=== PATIENT | male | born 1980 | race Two or more races ===

== ENCOUNTER → 2018-05-13 | Outpatient (CLI) | payer BC ==
--- NOTE | 2018-05-13 14:41 | RADIOLOGY REPORT (SQ) ---
EXAM DESCRIPTION: U/S SCROTUM W/O DOPPLER; U/S NON-OB PELVIS W/O DOP COMPLETED DATE/TIME: 05/13/2018 2:20 pm REASON FOR STUDY: R10.31 RIGHT LOWER QUADRANT PAIN;RIGHT INGUINAL HERNIA R10.31 RIGHT LOWER QUADRAN T PAIN COMPARISON: None. TECHNIQUE: Static and realtime almonte scale imaging of the scrotum and testes. Selected color Doppler and spectral images recorded to document blood flow. Patient is also having right inguinal pain. Ultrasound of the right inguinal canal was performed wit hout and with Valsalva LIMITATIONS: None. FINDINGS: RIGHT: TESTICLE: Normal size, 4 x 3.3 x 2.4 cm in size. Normal echotexture. Normal blood flow. No mass. EPIDIDYMIS: Normal. HYDROCELE OR VARICOCELE: There is a small right hydrocele which continues up into the right inguinal canal around the spermatic cord. No varicocele HERNIA OR EXTRA-TESTICULAR MASS: Small amount of fluid tracking from the right hemiscrotum into the r ight inguinal canal around the spermatic cord. No bowel loops in the right inguinal canal. OTHER: No other significant finding. LEFT: TESTICLE: Normal size, 4.4 by 3.2 x 2.6 cm in size. Normal echotexture. Normal blood flow. No mass. EPIDIDYMIS: Normal. HYDROCELE OR VARICOCELE: Small left hydrocele. No varicocele. HERNIA OR EXTRA-TESTICULAR MASS: No. OTHER: No other significant finding. IMPRESSION: No ultrasound evidence for testicular torsion Bilateral small hydroceles Fluid tracks from the right hemiscrotum into the right inguinal canal around the spermatic cord witho ut herniated bowel loops in the right inguinal canal. TECHNICAL DOCUMENTATION: JOB ID: [id number]- All Rights Reserved Reading location - IP/workstation name: [email or web address]
--- NOTE | 2018-05-13 14:41 | RADIOLOGY REPORT (SQ) ---
EXAM DESCRIPTION: U/S SCROTUM W/O DOPPLER; U/S NON-OB PELVIS W/O DOP COMPLETED DATE/TIME: 05/13/2018 2:20 pm REASON FOR STUDY: R10.31 RIGHT LOWER QUADRANT PAIN;RIGHT INGUINAL HERNIA R10.31 RIGHT LOWER QUADRAN T PAIN COMPARISON: None. TECHNIQUE: Static and realtime almonte scale imaging of the scrotum and testes. Selected color Doppler and spectral images recorded to document blood flow. Patient is also having right inguinal pain. Ultrasound of the right inguinal canal was performed wit hout and with Valsalva LIMITATIONS: None. FINDINGS: RIGHT: TESTICLE: Normal size, 4 x 3.3 x 2.4 cm in size. Normal echotexture. Normal blood flow. No mass. EPIDIDYMIS: Normal. HYDROCELE OR VARICOCELE: There is a small right hydrocele which continues up into the right inguinal canal around the spermatic cord. No varicocele HERNIA OR EXTRA-TESTICULAR MASS: Small amount of fluid tracking from the right hemiscrotum into the r ight inguinal canal around the spermatic cord. No bowel loops in the right inguinal canal. OTHER: No other significant finding. LEFT: TESTICLE: Normal size, 4.4 by 3.2 x 2.6 cm in size. Normal echotexture. Normal blood flow. No mass. EPIDIDYMIS: Normal. HYDROCELE OR VARICOCELE: Small left hydrocele. No varicocele. HERNIA OR EXTRA-TESTICULAR MASS: No. OTHER: No other significant finding. IMPRESSION: No ultrasound evidence for testicular torsion Bilateral small hydroceles Fluid tracks from the right hemiscrotum into the right inguinal canal around the spermatic cord witho ut herniated bowel loops in the right inguinal canal. TECHNICAL DOCUMENTATION: JOB ID: [id number]- All Rights Reserved Reading location - IP/workstation name: [email or web address]
== END ==
LOC: RAD 15:21
PROVIDERS: ATTEND Physician Assistant
DX: R10.31 Right lower quadrant pain (principal)
CPT/HCPCS: 76856; 76870

== ENCOUNTER 2019-11-06 03:53 | Emergency (ER) | payer BC ==
[2019-11-06] MEDS ORDERED: MORPHINE SULFATE 10 MG/ML INJ IV ONE (05:07)
[2019-11-06] MEDS ORDERED: ONDANSETRON HCL INJ/PF 4 MG/2 ML SDV IV ONE (05:07)
--- NOTE | 2019-11-06 05:08 | ER Document Report ---
ED GI/ - General Chief Complaint: Abdominal Pain Stated Complaint: ABDOMINAL PAIN Time Seen by Provider: 11/06/19 04:59 Primary Care Provider: AGUILAR LUEVANO MD [Primary Care Provider] - Follow up as needed Notes: CHIEF COMPLAINT: Abdominal pain HPI: 39-year-old male presenting to the emergency department complaining of upper abdominal pain that woke him from sleep around 3 AM. Patient had nausea and vomiting with this. No history of similar discomfort. Patient does report a history of some type of intestinal surgery in the right abdomen as a child also reports history of appendectomy 5 years ago. He has not had fever. [place] fine going to bed last night. Patient does not know if he still has a gallbladder ROS: See HPI - all other systems were reviewed and are otherwise negative Constitutional: no fever Eyes: no drainage, no blurred vision ENT: no runny nose, no sore throat Cardiovascular: no chest pain Resp: no SOB, no cough GI: + vomiting, no diarrhea, + abdominal pain : no dysuria Integumentary: no rash Allergy: no hives Musculoskeletal: no extremity pain or swelling Neurological: no numbness/tingling, no weakness MEDICATIONS: I agree with the patient medications as charted by the RN. ALLERGIES: I agree with the allergies as charted by the RN. PAST MEDICAL HISTORY/PAST SURGICAL HISTORY: Reviewed and agree as charted by RN. SOCIAL HISTORY: Reviewed and agree as charted by RN. FAMILY HISTORY: No significant familial comorbid conditions directly related to patient complaint EXAM: Reviewed vital signs as charted by RN. CONSTITUTIONAL: Alert and oriented and responds appropriately to questions. Well-appearing; well-nourished. Appears moderately uncomfortable HEAD: Normocephalic; atraumatic EYES: PERRL; Conjunctivae clear, sclerae non-icteric ENT: normal nose; no rhinorrhea; moist mucous membranes; pharynx without lesions noted, no uvula edema or deviation, no tonsillar hypertrophy, phonation normal NECK: Supple without meningismus; non-tender; no cervical lymphadenopathy, no masses CARD: RRR; no murmurs, no clicks, no rubs, no gallops; symmetric distal pulses RESP: Normal chest excursion without splinting or tachypnea; breath sounds clear and equal bilaterally; no wheezes, no rhonchi, no rales, pulse oximetry 99% on room air not hypoxic ABD/GI: Normal bowel sounds; non-distended; soft, moderate tenderness to the epigastric right upper quadrant region on palpation, no rebound, no guarding; no palpable organomegaly or masses. BACK: The back appears normal and is non-tender to palpation, there is no CVA tenderness EXT: Normal ROM in all joints; non-tender to palpation; no cyanosis, no effusions, no edema SKIN: Normal color for age and race; warm; dry; good turgor; no acute lesions noted NEURO: Moves all extremities equally; Motor and sensory function intact PSYCH: The patient's mood and manner are appropriate. Grooming and personal hy giene are appropriate. MDM: 39-year-old male with prior history of some kind of intestinal surgery as a child as well as history of appendectomy. Epigastric right upper quadrant pain. Differential is large. This could be obstructive given the prior surgery, could be cholelithiasis or cholecystitis, could be kidney stone. Will obtain screening labs treat patient's pain. He appears moderately uncomfortable. Will obtain CT to evaluate for obstructive issue or kidney stone. Will obtain ultra sound to evaluate if patient has cholelithiasis if he has a gallbladder TRAVEL OUTSIDE OF THE [place] IN LAST 30 DAYS: No - Related Data Allergies/Adverse Reactions: No Known Allergies Allergy (Verified 11/06/19 04:17) Home Medications: Amlodipine. Hydrochlorathiazide Past Medical History - Social History Smoking Status: Never Smoker Chew tobacco use (# tins/day): No Frequency of alcohol use: Occasional Drug Abuse: Bath salts Family History: Reviewed & Not Pertinent Patient has homicidal ideation: No Past Surgical History: Reports: Hx Abdominal Surgery Physical Exam - Vital signs Vitals: Temp 98.0 F 11/06/19 04:02 Course - Re-evaluation Re-evalutation: 11/06/19 06:[address] imaging did not show acute emergent abnormalities. Patient had a mild leukocytosis but no other significant abnormalities in his labs or chemistries. Reflux, gastric ulcer, does not appear to be gallbladder. Will place patient on medication for reflux, Bentyl, GI referral - Vital Signs Vital signs: Temp Pulse Resp BP Pulse Ox 98.0 F 71 17 137/92 H 99 11/06/19 04:12 11/06/19 04:12 11/06/19 04:12 11/06/19 04:12 11/06/19 04:12 - Laboratory Result Diagrams: 11/06/19 05:30 11/06/19 05:30 Laboratory results interpreted by me: 11/06/19 11/06/19 05:30 05:30 WBC 15.0 H Absolute Neuts (auto) 11.4 H Sodium 135.9 L Glucose 125 H Discharge - Discharge Clinical Impression: Abdominal pain, acute, epigastric Condition: Stable Disposition: HOME, SELF-CARE Additional Instructions: Your lab work, CT and ultrasound did not show a definitive cause for your pain and discomfort today. This may still be gastritis, gastric ulcer, reflux diseas e. Take the medications as prescribed, Protonix to help with stomach healing, Bentyl for abdominal pain and follow-up closely with both your primary care provider and with gastroenterology for further evaluation and treatment. If you develop fever greater than 101 return for reevaluation Prescriptions: Dicyclomine HCl [Bentyl 20 mg Tablet] 20 mg PO Q6H PRN #20 tablet PRN Reason: Pantoprazole Sodium [Protonix [address] Tablet] 20 mg PO DAILY #30 tablet. Referrals: AGUILAR LUEVANO MD [Primary Care Provider] - Follow up as needed RYLAND JONES MD [ACTIVE STAFF] - Follow up as needed
[2019-11-06 05:42] LABS: ABSOLUTE EOSINOPHILS # (AUTO) 0.1 10^3/uL (0.0-0.6); ABSOLUTE LYMPHOCYTES (AUTO) 2.4 10^3/uL (0.5-4.7); ABSOLUTE NEUT (AUTO) 11.4 10^3/uL (1.7-8.2); BASOPHILS % (AUTO) 0.3 % (0-2); EOSINOPHILS % (AUTO) 0.9 % (0-6); HEMATOCRIT 40.8 % (37.9-51.0); HEMOGLOBIN 14.2 g/dL (13.5-17.0); MEAN CORPUSCULAR HEMOGLOBIN 28.9 pg (27.0-33.4); MEAN CORPUSCULAR HGB CONC 34.7 g/dL (32.0-36.0); MEAN CORPUSCULAR VOLUME 83 fl (80-97); MONOCYTES % (AUTO) 6.6 % (3-13); PLATELET COUNT 309 10^3/uL (150-450); RED BLOOD COUNT 4.91 10^6/uL (4.35-5.55); RED CELL DISTRIBUTION WIDTH 13.5 % (11.5-14.0); SEGMENTED NEUTROPHILS % (AUTO) 76.2 % (42-78); TOTAL CELLS COUNTED % (AUTO) 100 %
[2019-11-06 06:03] LABS: ALBUMIN 4.8 g/dL (3.5-5.0); ALKALINE PHOSPHATASE 67 U/L (38-126); ANION GAP 10 (5-19); ASPARTATE AMINO TRANSFERASE 28 U/L (17-59); BILIRUBIN,DIRECT 0.1 mg/dL (0.0-0.4); BILIRUBIN,TOTAL 0.6 mg/dL (0.2-1.3); BLOOD UREA NITROGEN 19 mg/dL (7-20); CALCIUM 9.6 mg/dL (8.4-10.2); CARBON DIOXIDE 27 mmol/L (22-30); CHLORIDE 99 mmol/L (98-107); GLUCOSE 125 mg/dL (75-110); POTASSIUM 3.6 mmol/L (3.6-5.0); TOTAL PROTEIN 7.8 g/dL (6.3-8.2)
--- NOTE | 2019-11-06 06:11 | RADIOLOGY REPORT (SQ) ---
EXAM DESCRIPTION: US ABDOMEN LIMITED COMPLETED DATE/TME: 11/06/2019 05:06 CLINICAL HISTORY: 39 years, Male, ruq PAIN COMPARISON: None. TECHNIQUE: Limited right upper quadrant ultrasound LIMITATIONS: None. FINDINGS: The liver is homogenous in echotexture without focal lesion. No gallstones or gallbladder wall thickening. CBD measures 2 mm in diameter. Abdominal aorta and pancreas not well seen due to bowel gas. Right kidney and inferior vena cava are unremarkable. No ascites IMPRESSION: Unremarkable exam copyright 2010 [employer]- All Rights Reserved
--- NOTE | 2019-11-06 06:51 | RADIOLOGY REPORT (SQ) ---
CT ABDOMEN AND PELVIS WITH INTRAVENOUS CONTRAST: 11/06/2019 5:42 AM CDT HISTORY: 39-year old with upper back pain. COMPARISON: None available TECHNIQUE: Axial contiguous images were obtained from the lung bases to the proximal femurs with intravenous intravenous contrast administered. Sagittal and coronal reconstructions were also obtained and reviewed. This exam was performed according to our departmental dose-optimization program, which includes automated exposure control, adjustment of the mA and/or KV according to the patient's size and/or use of iterative reconstruction technique. FINDINGS: No focal consolidative airspace opacities are seen. No discrete pleural effusion is seen. The visualized hepatic parenchyma is unremarkable. No focal enhancing lesion is seen. The gallbladder demonstrates no evidence of calcified gallstones The spleen, pancreas, and adrenals are normal in size and contour. The kidneys demonstrate no evidence of hydronephrosis. Bladder is minimally distended, but grossly appears unremarkable. The stomach is not well distended. The small bowel loops appear unremarkable. No pericolonic inflammatory stranding is seen. There are postsurgical changes seen at the base of the cecum. This is likely from appendectomy. There is no evidence of pneumoperitoneum or free fluid. The aorta and IVC appear normal in size. No significantly enlarged lymph nodes are seen in the abdomen or pelvis. Review of the bone show no evidence of any suspicious lytic or blastic lesions. IMPRESSION: No acute process is seen within the abdomen or pelvis.
[2019-11-06] MEDS ORDERED: FAMOTIDINE INJ/PF 20 MG/2 ML SDV IV ONE (06:52)
[2019-11-06] MEDS ORDERED: DICYCLOMINE HCL INJ 20 MG/2 ML AMPULE IM ONE (06:52)
[2019-11-06 07:24] VITALS: BP 135/80
== END 2019-11-06 07:25 | disposition home or self-care (01) ==
LOC: ER 03:53
DX: R10.13 Epigastric pain (principal); R11.2 Nausea with vomiting, unspecified
CPT/HCPCS: 99284; 96372; 96374; 96375; 36415; 83690; 85025; 80053; 76705; 74177; J0500; J2270; J2405; S0028

== ENCOUNTER → 2019-11-08 | Outpatient (CLI) | payer BC ==
[2019-11-08 13:19] LABS: HEMATOCRIT 43.2 % (37.9-51.0); HEMOGLOBIN 15.4 g/dL (13.5-17.0); MEAN CORPUSCULAR HEMOGLOBIN 29.3 pg (27.0-33.4); MEAN CORPUSCULAR HGB CONC 35.6 g/dL (32.0-36.0); MEAN CORPUSCULAR VOLUME 82 fl (80-97); PLATELET COUNT 326 10^3/uL (150-450); RED BLOOD COUNT 5.25 10^6/uL (4.35-5.55); RED CELL DISTRIBUTION WIDTH 13.5 % (11.5-14.0); WHITE BLOOD COUNT 9.8 10^3/uL (4.0-10.5)
[2019-11-08 13:38] LABS: ALBUMIN 5.3 g/dL (3.5-5.0); ALKALINE PHOSPHATASE 58 U/L (38-126); ANION GAP 14 (5-19); ASPARTATE AMINO TRANSFERASE 34 U/L (17-59); BILIRUBIN,DIRECT 0.1 mg/dL (0.0-0.4); BILIRUBIN,TOTAL 1.1 mg/dL (0.2-1.3); BLOOD UREA NITROGEN 23 mg/dL (7-20); CALCIUM 10.5 mg/dL (8.4-10.2); CARBON DIOXIDE 26 mmol/L (22-30); CHLORIDE 98 mmol/L (98-107); GLUCOSE 99 mg/dL (75-110); POTASSIUM 3.7 mmol/L (3.6-5.0); TOTAL PROTEIN 8.4 g/dL (6.3-8.2)
[2019-11-08 13:51] LABS: ABSOLUTE LYMPHOCYTES# (MANUAL) 3.2 10^3/uL (0.5-4.7); ABSOLUTE MONOCYTES # (MANUAL) 0.5 10^3/uL (0.1-1.4); BASOPHILS % (MANUAL) 0 % (0-2); EOSINOPHILS % (MANUAL) 2 % (0-6); LYMPHOCYTES % (MANUAL) 33 % (13-45); MONOCYTES % (MANUAL) 5 % (3-13); SEGMENTED NEUTROPHILS % (MAN) 60 % (42-78); TOTAL CELLS COUNTED 100
[2019-11-08 13:52] LABS: PLATELET COMMENT ADEQUATE; PLATELET LARGE PRESENT; POLYCHROMASIA SLIGHT
== END ==
LOC: OD 12:05
PROVIDERS: ATTEND Physician Assistant
DX: D72.829 Elevated white blood cell count, unspecified (principal); R10.13 Epigastric pain
CPT/HCPCS: 36415; 80053; 85025

== ENCOUNTER 2019-11-20 05:28 | Day surgery (SDC) | payer BC ==
--- NOTE | 2019-11-16 17:26 | EKG REPORT ---
SEVERITY:- NORMAL ECG - SINUS RHYTHM : Confirmed by: Jing Berger MD 16-Nov-2019 17:26:18
[~2019-11-20 05:28] MED LIST: LACTATED RINGERS 1000 ML IV PRN; LIDOCAINE 0.5% INJ-PF (5 MG/ML) 50 ML SDV SUBCUT PRN
[2019-11-20] MEDS ORDERED: PROPOFOL INJ 200 MG/20 ML VIAL IV ONE (06:58)
[2019-11-20] MEDS ORDERED: LIDOCAINE 2% INJ (20 MG/ML) 20 ML MDV ONE (06:59)
[2019-11-20] MEDS ORDERED: ONDANSETRON HCL INJ/PF 4 MG/2 ML SDV IV PRN (07:11)
[2019-11-20] MEDS ORDERED: DIPHENHYDRAMINE HCL 50 MG/ML VIAL IV PRN (07:11)
--- NOTE | 2019-11-20 12:13 | Operative Report ---
Operative Report DATE OF SURGERY: 11/20/19 Operative Report: The risks benefits and alternatives of the procedure explained to the patient in detail and informed consent is obtained.A GIF Olympus video scope was inserted into the patient's mouth and hypopharynx, the esophagus is identified intubated and insufflated, the scope was then advanced through the esophagus stomach and duodenum, retroflexion maneuver is done, the esophagus stomach and first and second portions of the duodenum examined PREOPERATIVE DIAGNOSIS: Epigastric pain rule out peptic ulcer disease POSTOPERATIVE DIAGNOSIS: Gastritis status post biopsy. Hiatal hernia OPERATION: EGD with biopsy SURGEON: RYLAND JONES ANESTHESIA: LMAC TISSUE REMOVED OR ALTERED: As noted above. COMPLICATIONS: None. ESTIMATED BLOOD LOSS: None. INTRAOPERATIVE FINDINGS: As noted above. PROCEDURE: Patient tolerated the procedure well. No immediate postprocedure complications are noted. Patient is discharged in good condition. Discharge date 11/20/2019. Discharge diet: Regular. Discharge activity: Regular. 2 to 3-week follow-up to discuss findings. Patient is instructed call the office or proceed to the emergency room should there be any further problems or questions. Wait on the pathology.
[2019-11-20 14:12] VITALS: BP 118/82
== END 2019-11-20 08:40 | disposition home or self-care (01) ==
LOC: OROUT 05:28
PROVIDERS: ATTEND Internal Medicine Gastroenterology
DX: K29.50 Unspecified chronic gastritis without bleeding (principal); K44.9 Diaphragmatic hernia without obstruction or gangrene; I10 Essential (primary) hypertension; Z79.899 Other long term (current) drug therapy
CPT/HCPCS: 43239; 93005; 36415; 84132; 87635; 88305 ×2; 93010; J3490; J2704; C9803; 731

== ENCOUNTER 2020-06-07 10:48 | Emergency (ER) | payer BC ==
--- NOTE | 2020-06-07 11:42 | ER Document Report ---
ED General - General Chief Complaint: Abdominal Pain Stated Complaint: ABDOMINAL PAIN Primary Care Provider: JOANIE WHITEHEAD PA [NO LOCAL MD] - Follow up as needed TRAVEL OUTSIDE OF THE [place] IN LAST 30 DAYS: No - HPI Notes: Chief Complaint: Historian: History obtained from patient HPI: This is a 39-year-old Covid positive male presents to the ER complaining of right-sided abdominal pain and diarrhea since this morning. Pt was diagnosed w/ covid on Wednesday- says his cough/congestion resolved after 2 days. Pt says he had exactly the same abdominal pain 6 months ago and came to the ER w/ a normal workup and was referred to GI. Pt saw GI and says he was told he has ''intestine inflammation'' based on endoscopy. Pt had recieved medications during his ER visit that fully relieved his pain and is requesting those meds today- unsure of the name of them. Pt was able to drink water this morning but denies any effect on his pain. Pain is RUQ and nonradiating. only prior abdominal surgeries are some type of intestinal blockage as an infant and appendectomy. PT denies dysuria or hematuria. no fever/chills, sob, cp. ROS: Constitutional: no fevers. HEENT: no LONGORIA, sore throat, or vision changes. CV: no chest pain or palpitations. Resp: no cough or SOB. GI: abdominal pain, diarrhea : no dysuria, hematuria, or incont. MSK: no back pain, no joint swelling/redness. Skin: no rashes or itching. Neuro: no seizures, weakness, numbness, or confusion. Hematological: no ecchymosis or easy bleeding. Endocrine: no polyuria/polydipsia, no heat/cold intolerance. Psych: no SI/HI, AH/VH or memory loss. PMHx: Reviewed and agree as charted by RN. PSHx: Reviewed and agree as charted by RN. SOCHx: Reviewed and agree as charted by RN. FHX: No significant familial comorbid conditions directly related to patient complaint Current Medications: Reviewed and agree with the patient medications as charted by the RN. Allergies: Reviewed and agree with the listed allergies as charted by the RN Physical Exam: Vitals: Reviewed in chart as documented by RN. General: Alert and in NAD. Head: Normocephalic; atraumatic Eyes: PERRLA, Conjunctivae clear sclerae non-icteric bilat ENT: no soft palate swelling or uvular deviation Neck: trachea midline, no unilateral swelling/tenderness/lymphadenopathy CV: RRR, no M/R/G; symmetric distal pulses Resp: respirations even and unlabored, CTA bilat. GI: abd soft and nondistended. 7cm healed horizontal healed surgical scar in RUQ. tender to RUQ, pos dang's. no rebound. no guarding. normal bs. no masses/hsm. no cvat MSK: FROM of all extremities. No midline CTL spine tenderness/deformity Skin: warm, moist, good turgor. no rash/lesions Neuro: Alert and oriented X 4. following CN 2-12 intact. no unilateral weakness/numbness Psych: No SI/HI or AH/VH. ED Results: Medical Decision-Making: Medical Decision-making/Differential Diagnosis: Consider various etiologies including but not limited to Abdominal pain, Hernia, Acute Gastritis, Appendicitis, Partial or Complete small bowel obstruction, Cholecysitis, Diverticulitis, Gastroenteritis, GERD, Nephrolithiasis, Pancreatitis, Peptic Ulcer Disease, Urinary Tract Infection, Pyelonephritis, Infection, metabolic derangement, ect plan - Labs, urine, IV fluid hydration, bentyl, morphine, pepcid - (meds he recieved last ER visit). prn imaging. labs reviewed- slight ALT elevation. NA/K/CL slightly dec. BUN 22. likely dry, IVF infusing. will get RUQ US to r/o biliary pathology. This course of action was discussed with the patient and/or family. They were amenable to this, verbalized understanding, and were without further questions. - Related Data Allergies/Adverse Reactions: No Known Allergies Allergy (Verified 11/16/19 12:02) Past Medical History - Social History Smoking Status: Unknown if Ever Smoked Family History: Reviewed & Not Pertinent Patient has homicidal ideation: No - Past Medical History Cardiac Medical History: Reports: Hx Hypertension - ON MEDS FOR ONE MONTH Denies: Hx Coronary Artery Disease, Hx Heart Attack Pulmonary Medical History: Denies: Hx Asthma, Hx Bronchitis, Hx COPD, Hx Pneumonia Neurological Medical History: Denies: Hx Cerebrovascular Accident, Hx Seizures Musculoskeletal Medical History: Denies Hx Arthritis Past Surgical History: Reports: Hx Abdominal Surgery Physical Exam - Vital signs Vitals: Temp Pulse Resp BP Pulse Ox 98.1 F 74 19 150/102 H 98 06/07/20 11:06 06/07/20 11:06 06/07/20 11:06 06/07/20 11:06 06/07/20 11:06 Course - Re-evaluation Re-evalutation: 06/07/20 15:01 US with cholelithiasis and sludge, GB wall upper limits of normal. normla CBD. pos dang's. Findings suggestive of acute cholecystitis. discussed w/ Dr Santos. normal WBC and is afebrile. Will consult gen surgery to discuss management but suspect pt will be discharged home w/ outpt f/u due to positive covid test. 06/07/20 15:12 called general surgery- unable to reach on extension. motion picture camera operator unable to reach him on cell phone. motion picture camera operator will call back once surgeon is reached. 06/07/20 16:[address] Dai helmhe recommended patient be treated as outpatient follow-up in the clinic due to his positive Covid status as well as since patient does not have any fevers, elevated white count, pericholecystic fluid or common bile duct dilation. Asked me back to discharge patient with antibiotics and he did not feel this was necessary. He recommended a "no fat diet" not a low fat diet. Patient is to call the office on Wednesday to schedule an appointment for 2 weeks from his onset of Covid symptoms. Plan to likely schedule an outpatient cholecystectomy. As there are multiple pharmacies close due to the [place] '[place], I will give patient a 6 pill dispensed packet of [place] and Zofran and also send in prescriptions for him to fill once they reopen. I had extensive discussion regarding patient's results and no fat diet. Also explained return factors extensively, occluding fevers and chills, intractable vomiting, etc. Patient verbalized understanding these instructions. May follow-up with his PCP this coming week for recheck. - Vital Signs Vital signs: Temp Pulse Resp BP Pulse Ox 98.1 F 74 19 150/102 H 98 06/07/20 11:06 06/07/20 11:06 06/07/20 11:06 06/07/20 11:06 06/07/20 11:06 - Laboratory Results Result Diagrams: 06/07/20 11:55 06/07/20 11:55 Laboratory Results Interpreted: 06/07/20 06/07/20 06/07/20 11:55 11:55 11:55 Lymph % (Auto) 11.4 L Seg Neutrophils % 81.9 H Sodium 135.5 L Potassium 3.4 L Chloride 95 L BUN 22 H Glucose 145 H ALT 61 H Urine Protein 100 H Critical Laboratory Results Reviewed: No Critical Results - Radiology Results Critical Radiology Results Reviewed: No Critical Results Discharge - Discharge Clinical Impression: Cholelithiasis Qualifiers: Cholelithiasis location: gallbladder Cholecystitis presence: without cholecystitis Biliary obstruction: without biliary obstruction Qualified C ode(s): K80.20 - Calculus of gallbladder without cholecystitis without obstruction Clinical Impression: (Ruled Out): Cholecystitis, acute with cholelithiasis Condition: Stable Disposition: HOME, SELF-CARE Instructions: Gallbladder Disease ([facility]), Low-Fat Diet ([facility]) Additional Instructions: Eat a no fat diet, avoid any foods with fat in them. Take medications as prescribed. No driving on pain medications. Call the general surgery office- Dr Malcolm - on Wednesday and schedule an appointment for 2 weeks from the onset of your COVID symptoms. He will likely recommend you schedule surgery to have your gallbladder removed. drink plenty of fluids to stay hydrated. Return to the ER immediately if you develop a fever, continuous vomiting, or other worsening s igns. follow up with your doctor next week for a recheck. Referrals: JOANIE WHITEHEAD PA [NO LOCAL MD] - Follow up as needed CESAR HERNANDEZ MD [ACTIVE STAFF] - Follow up as needed
[2020-06-07] MEDS ORDERED: DICYCLOMINE HCL INJ 20 MG/2 ML AMPULE IM ONE (12:02)
[2020-06-07] MEDS ORDERED: MORPHINE SULFATE 10 MG/ML INJ IV PRN (12:04)
[2020-06-07] MEDS ORDERED: FAMOTIDINE INJ/PF 20 MG/2 ML SDV IV ONE (12:04)
[2020-06-07] MEDS ORDERED: RINGERS SOLUTION,LACTATED 1,000 ML IV ONE (12:05)
[2020-06-07 12:12] LABS: ABSOLUTE LYMPHOCYTES (AUTO) 0.9 10^3/uL (0.5-4.7); ABSOLUTE MONOCYTES (AUTO) 0.5 10^3/uL (0.1-1.4); ABSOLUTE NEUT (AUTO) 6.4 10^3/uL (1.7-8.2); BASOPHILS % (AUTO) 0.4 % (0-2); HEMATOCRIT 42.2 % (37.9-51.0); HEMOGLOBIN 15.1 g/dL (13.5-17.0); LYMPHOCYTES % (AUTO) 11.4 % (13-45); MEAN CORPUSCULAR HEMOGLOBIN 28.9 pg (27.0-33.4); MEAN CORPUSCULAR HGB CONC 35.7 g/dL (32.0-36.0); MEAN CORPUSCULAR VOLUME 81 fl (80-97); MONOCYTES % (AUTO) 6.3 % (3-13); PLATELET COUNT 234 10^3/uL (150-450); RED BLOOD COUNT 5.21 10^6/uL (4.35-5.55); RED CELL DISTRIBUTION WIDTH 13.2 % (11.5-14.0); SEGMENTED NEUTROPHILS % (AUTO) 81.9 % (42-78); TOTAL CELLS COUNTED % (AUTO) 100 %; WHITE BLOOD COUNT 7.8 10^3/uL (4.0-10.5)
[2020-06-07 12:18] LABS: APPEARANCE,URINE CLEAR; BILIRUBIN,URINE NEGATIVE (NEGATIVE); COLOR,URINE YELLOW; GLUCOSE, URINE NEGATIVE (NEGATIVE); KETONES,URINE NEGATIVE (NEGATIVE); LEUKOCYTE ESTERASE,URINE NEGATIVE (NEGATIVE); NITRITE,URINE NEGATIVE (NEGATIVE); PROTEIN,URINE 100 mg/dL (NEGATIVE); URINE SPECIFIC GRAVITY 1.019; UROBILINOGEN,URINE NEGATIVE mg/dL (<2.0)
[2020-06-07 12:37] LABS: ALBUMIN 4.9 g/dL (3.5-5.0); ALKALINE PHOSPHATASE 71 U/L (38-126); ANION GAP 12 (5-19); ASPARTATE AMINO TRANSFERASE 52 U/L (17-59); BILIRUBIN,DIRECT 0.3 mg/dL (0.0-0.4); BILIRUBIN,TOTAL 0.5 mg/dL (0.2-1.3); BLOOD UREA NITROGEN 22 mg/dL (7-20); CALCIUM 9.3 mg/dL (8.4-10.2); CARBON DIOXIDE 29 mmol/L (22-30); CHLORIDE 95 mmol/L (98-107); GLUCOSE 145 mg/dL (75-110); POTASSIUM 3.4 mmol/L (3.6-5.0); TOTAL PROTEIN 8.1 g/dL (6.3-8.2)
--- NOTE | 2020-06-07 14:12 | RADIOLOGY REPORT (SQ) ---
EXAM DESCRIPTION: U/S ABDOMEN LIMITED W/O DOP IMAGES COMPLETED DATE/TIME: 06/07/2020 10:57 am REASON FOR STUDY: RUQ abdom pain and nausea. COVID positive COMPARISON: CT abdomen pelvis and abdominal ultrasound 11/06/2019 TECHNIQUE: Dynamic and static grayscale images acquired of the abdomen and recorded on PACS. Additio nal selected color Doppler and spectral images recorded. LIMITATIONS: Portions of the abdomen are not well visualized due to overlying bowel and patient body habitus. FINDINGS: PANCREAS: Incompletely visualized. LIVER: No masses. Echotexture normal. LIVER VASCULATURE: Normal directional flow of the main portal vein and hepatic veins. GALLBLADDER: Cholelithiasis and gallbladder sludge. Gallbladder wall thickness is at the upper limit s of normal. ULTRASOUND-DETECTED BERRY'S SIGN: Positive. INTRAHEPATIC DUCTS AND COMMON DUCT: CBD and intrahepatic ducts normal caliber. No filling defects. INFERIOR VENA CAVA: Not fully visualized. AORTA: Visualized portions are unremarkable. RIGHT KIDNEY: Normal size. Normal echogenicity. No solid or suspicious masses. No hydronephrosis. No calcifications. PERITONEAL AND RIGHT PLEURAL SPACE: No ascites or effusions. OTHER: No other significant findings. IMPRESSION: 1. Cholelithiasis with reportedly positive sonographic Berry's sign. Gallbladder wall thickness is at the upper limits of normal. Findings are suggestive of acute cholecystitis. 2. No significant biliary dilatation. TECHNICAL DOCUMENTATION: JOB ID: [id number] [employer]- All Rights Reserved Reading location - IP/workstation name: [email or web address]
[2020-06-07] MEDS ORDERED: HYDROMORPHONE HCL INJ/PF 2 MG/ML AMPULE IV PRN (14:59)
[2020-06-07] MEDS ORDERED: POTASSIUM CHLORIDE 10 MEQ TABLET.ER PO ONE (16:59)
[2020-06-07 17:05] VITALS: BP 158/92
[2020-06-07] MEDS ORDERED: HYDROCODONE/ACETAMINOPHEN 5-325 MG (6 TAB/ER DISP) PO PRN (17:06)
[2020-06-07] MEDS ORDERED: ONDANSETRON ODT 4 MG TAB (6 TAB/ER DISP) PO PRN (17:07)
== END 2020-06-07 17:41 | disposition home or self-care (01) ==
LOC: ER 10:48
DX: K80.20 Calculus of gallbladder without cholecystitis without obstruction (principal); R19.7 Diarrhea, unspecified; R10.9 Unspecified abdominal pain; I10 Essential (primary) hypertension
CPT/HCPCS: 99285; 96372; 96361; 96374; 96375; 36415; 83690; 85025; 80053; 81001; 76705; J0500; J2270; J1170; J7120; S0028